=== PATIENT | female | born 1950 | race Caucasian/White ===

== ENCOUNTER → 2018-03-28 | Outpatient (CLI) | payer MEDICARE, MEDICAID | LOC: COL.RAD 07:24 | DX: R68.81 Early satiety (principal) | CPT/HCPCS: A9541 ==

== ENCOUNTER → 2020-04-30 | Outpatient (CLI) | payer MEDICARE, MEDICAID | LOC: MHCPAIN 13:17 | DX: M47.817 Spondylosis without myelopathy or radiculopathy, lumbosacral region (principal); M53.3 Sacrococcygeal disorders, not elsewhere classified; M54.6 Pain in thoracic spine; M54.5 Low back pain | CPT/HCPCS: G0463 ==

== ENCOUNTER → 2020-07-01 | Outpatient (CLI) | payer MEDICARE, MEDICAID | LOC: MHCPAIN 10:03 | DX: M47.817 Spondylosis without myelopathy or radiculopathy, lumbosacral region (principal); M79.18 Myalgia, other site; M54.5 Low back pain; M53.3 Sacrococcygeal disorders, not elsewhere classified; G89.29 Other chronic pain | CPT/HCPCS: G0463 ==

== ENCOUNTER → 2020-07-14 | Outpatient (CLI) | payer MEDICARE, MEDICAID | LOC: MHCPAIN 10:03 | DX: M54.16 Radiculopathy, lumbar region (principal); M47.817 Spondylosis without myelopathy or radiculopathy, lumbosacral region; G89.29 Other chronic pain | CPT/HCPCS: J1040 ==

== ENCOUNTER → 2020-08-05 | Outpatient (CLI) | payer MEDICARE, MEDICAID | LOC: MHCPAIN 11:19 | DX: M47.817 Spondylosis without myelopathy or radiculopathy, lumbosacral region (principal); M54.5 Low back pain; M53.3 Sacrococcygeal disorders, not elsewhere classified; G89.29 Other chronic pain | CPT/HCPCS: G0463 ==

== ENCOUNTER → 2020-08-05 | Outpatient (CLI) | payer MEDICARE, MEDICAID | LOC: COL.RAD 12:01 | DX: M16.11 Unilateral primary osteoarthritis, right hip (principal) ==

== ENCOUNTER → 2020-08-21 | Outpatient (CLI) | payer MEDICARE, MEDICAID | LOC: MHCPAIN 09:39 | DX: M16.11 Unilateral primary osteoarthritis, right hip (principal); M25.551 Pain in right hip | CPT/HCPCS: G0463; J1040; Q9967 ==

== ENCOUNTER → 2020-08-27 | Outpatient (RCR) | payer MEDICARE, MEDICAID | END | disposition still patient (30) | LOC: WSPT → WSC 05-29 09:00 → WSPT 07-14 09:00 → WSC 07-21 10:30 → WSPT 08-12 11:00 → WSC 08-14 09:00 → WSPT 08-19 09:00 → WSC 08-22 08:00 → WSPT 08-26 09:45 | DX: M47.27 Other spondylosis with radiculopathy, lumbosacral region (principal); M53.3 Sacrococcygeal disorders, not elsewhere classified ==

== ENCOUNTER → 2020-09-08 | Outpatient (CLI) | payer MEDICARE, MEDICAID | LOC: MHCPAIN 09:09 | DX: M47.817 Spondylosis without myelopathy or radiculopathy, lumbosacral region (principal); M79.18 Myalgia, other site; G89.29 Other chronic pain; M53.3 Sacrococcygeal disorders, not elsewhere classified | CPT/HCPCS: G0463 ==

== ENCOUNTER 2020-10-01 09:30 | Outpatient (RCR) | payer MEDICARE, MEDICAID | END 2020-10-06 | disposition home or self-care (01) | LOC: WSPT | DX: M54.5 Low back pain (principal); G89.29 Other chronic pain ==

== ENCOUNTER 2021-01-27 15:34 | Inpatient (IN) | payer MEDICARE, MEDICAID ==
[~2021-01-27] VITALS: Ht 167.6 cm; Wt 102.0 kg
[2021-03-10] VITALS (10 sets, daily range): BP systolic 109–143; BP diastolic 53–87; PULSE 64–99; TEMP 97.8–98.4
[2021-03-10] MEDS ORDERED: PRIL40 PO (09:36)
[2021-03-10] MEDS ORDERED: WELLBUTRIN XL150 MG PO (09:37)
[2021-03-10] MEDS ORDERED: PAMELOR50 MG PO (09:37)
[2021-03-10] MEDS ORDERED: INDERAL 20MG20 MG PO (09:38)
[2021-03-10] MEDS ORDERED: NEURONTIN300 MG/CAP PO (09:38)
[2021-03-10] MEDS ORDERED: HCTZ12.5TAB PO (09:39)
[2021-03-10] MEDS ORDERED: DESYREL 50MG50 MG PO (09:40)
[2021-03-10] MEDS ORDERED: REQUIP4 MG PO (09:41)
[2021-03-10] MEDS ORDERED: PRINIVIL20 MG PO (09:41)
[2021-03-10] MEDS ORDERED: LIORESAL 1010 MG/TAB PO (09:42)
[2021-03-10] MEDS ORDERED: SYNTHROID0.1 MG/TAB PO (09:43)
[2021-03-10] MEDS ORDERED: PERCOCET 325 MG1 TA2 PO (09:44)
[2021-03-10] MEDS ORDERED: IRON TABLETS325 MG PO (09:45)
[2021-03-10] MEDS ORDERED: VITAMIN C500 MG PO (09:46)
[2021-03-10] MEDS ORDERED: FOLIC ACID 40400 MCG PO (09:47)
--- NOTE | 2021-03-10 16:45 | NUR ---
RECEVIED REPORT FROM PACU NURSE, PHYLLIS CATES. AWAITING PATIENT ARRIVAL TO ROOM 327 POST OP
--- NOTE | 2021-03-10 16:55 | NUR ---
PATIENT ARRIVED TO ROOM 327 VIA HOSP BED WITH PACU NURSE PRESENT. PATIENT REPORTS SOME PAIN, SEE MAR FOR MEDS GIVEN. TOLERATING SIPS WATER AT THIS TIME, WANTING MORE TO EAT. IVF IN PLACE, FLUIDS RUNNING PER GRAVITY. DENIES CHEST PAIN/SOA AT THIS TIME. ENCOURAGED ANKLE PUMP EXERCISES AND C&DB EXERCISES POST OP. ICE BACK TO RIGHT HIP. DRSG TO RIGHT HIP CDI.
--- NOTE | 2021-03-10 17:00 | NUR ---
DECREASED ROM/STRENGTH TO RLE D/T SURGERY TODAY. DENIES CHEST PAIN/SOA AT THIS TIME. DENIES NUMBNESS/TINGLING TO EXTREMITIES AT THIS TIME. DENIES URGE TO VOID. IVF INFUSING PER GRAVITY WITH NO PROBLEM, IV SITE TO L HAND IN PLACE/PATENT. PATIENT TOLERATING CLEAR LIQUIDS AT THIS TIME. WIGGLES ELSA TOES ON COMMAND WITH NO PROBLEMS.
[2021-03-10] MEDS ORDERED: TYLENOL 325MG325 MG PO (17:26)
--- NOTE | 2021-03-10 19:30 | NUR ---
CHANGE OF SHIFT REPORT GIVEN TO NIGHT NURSE, SURYA CATES.
--- NOTE | 2021-03-10 20:00 | NUR ---
Report received, assumed care for shift coordinator. Assessment complete. A&Ox3. Denies nausea/shortness of breath. VS remain stable. Dressing to right hip CDI. Fresh ice pack applied. Attempted to get up to ambulate but states she cant feel her right lower extremity and it "yunier." Will reattempt later in this shift. Plan of care discussed for this shift to include HS meds/pain control/ambulation/calling for questions/concerns. Call light in reach. Will monitor.
--- NOTE | 2021-03-10 22:00 | NUR ---
Called with c/o pain to right hip-rating pain 8/10 on pain scale-described as constant throbbing. [place] given per dr veronica. WIll monitor.
[2021-03-11 03:47] VITALS: BP 98/55; PULSE 86; TEMP 97.7
--- NOTE | 2021-03-11 06:08 | NUR ---
Pt called to desk stating her IV was bleeding. Scant amount of blood underneath tegaderm. Flushes well with good blood return. Attempted to redress site but patient states she just wants a new IV site. IV to left hand DCd-cath intact.
--- NOTE | 2021-03-11 06:30 | NUR ---
Called with c/o pain to right hip-rating pain 5/10 on pain scale-described as constant throbbing. Diagonal given per dr veronica. Cortes monitor.
[2021-03-11 07:19] LABS: HEMOGLOBIN 12.3 g/dl (12.5-16.0)
[2021-03-11 08:00] VITALS: BP 107/57; PULSE 75; TEMP 97.5
--- NOTE | 2021-03-11 09:01 | NUR ---
PT UP WITH THERAPY THIS AM. PAIN RATING @4/10 AFTER PO PAIN MEDS. PT PLANS ON STAYING OVER NIGHT. VSS ASSESSMENTS COMPLETE. AMBULATING IN [place] WITH PT THIS AM. SLOW STEADY GAIT. AM MEDS GIVEN ORDERED.
[2021-03-11 11:14] VITALS: BP 100/51; PULSE 81; TEMP 97.8
[2021-03-11 15:04] VITALS: BP 110/67; PULSE 77; TEMP 97.6
--- NOTE | 2021-03-11 16:18 | NUR ---
Sw met with the pt, ( bedside) who stated her preference to return home once medically stable. Pt lives at home with her , adult children and grand children in [place], [place]. Pt is independent with all ADLs and uses a cane. No other DME at this time. Pt PCP is Shyam Denise and pt gets her medication from [facility] in [place], [place]. Pt reports no difficulties obtaining her meds. The pt informed Sw that she did not have [facility] paperwork, but her would be her first choice. Sw gave pt DPOA-[facility] paperwork and educated her on it. Sw informed pt that PT is recommending her outpatient therapy. Pt acknowledge, was aware and informed Sw that she is going to [facility] rehab. No other needs stated at this time. Sw to await further recommendations and follow up as needed. Discharge Plan: Home with [facility]ni with OP Pt.
[2021-03-11 19:37] VITALS: BP 101/52; PULSE 80
--- NOTE | 2021-03-11 20:00 | NUR ---
Report received, assumed care for residential sales. Assessment complete. A&Ox3. Denies nausea/shortness of breath. Rating pain 7/10 to right hip-described as ache/throbbing-oxycodone given per dr order. SCDs/Ab bilat. Aquacell dressing CDI. Plan of care discussed for this shift to include HS meds/pain control/ambulation. Verbalizes understanding/denies needs. Call light in reach. Will monitor.
[2021-03-11 23:10] VITALS: BP 96/53; PULSE 79; TEMP 97.9
--- NOTE | 2021-03-11 23:10 | NUR ---
Called with c/o pain to right lower extremity into buttocks. Rating pain 8/10 on pain scale-described as constant throbbing. [place] given per dr veronica.
[2021-03-12] VITALS (7 sets, daily range): BP systolic 72–136; BP diastolic 35–80; PULSE 50–97; TEMP 97.5–99
--- NOTE | 2021-03-12 03:40 | NUR ---
Up out of bed at this time-ambulated approx 200 feet. Voided without difficulty. Sat on side of bed for approx 30minutes. Rating pain 7/10 to right hip/lower extremity-described as constant throbbing. Oxycodone given per dr order. Fresh ice pack applied. SCDs off-requesting a break. Denies any other questions/concerns. Call light in reach. Will monitor.
--- NOTE | 2021-03-12 08:31 | NUR ---
PT EATING BREAKFAST. TONYA AYERS FOR ORTHO BY AND PLAN ON DISCHARGE LATER TODAY. PAIN WELL CONTROLLED WITH PO MEDS. UP TO BR AD CASEY. DRESSING TO RIGHT HIP CDI. PT EATING AND DRINKING WITH NO N/V. PLAN ON OUT PATIENT THERAPY AFTER DISCHARGE.
--- NOTE | 2021-03-12 11:47 | NUR ---
DURING ROUTINE VITALS PT'S BECAME HYPOTENSIVE AND DROWSEY. NOTIFIED DR. MANLEY AND TONYA AYERS. NEW ORDERS RECIEVED.
[2021-03-12 11:55] LABS: HEMOGLOBIN 11.6 g/dl (12.5-16.0)
[2021-03-12 11:58] LABS: HEMATOCRIT 35.8 % (37.0-47.0)
--- NOTE | 2021-03-12 12:16 | NUR ---
RETURNED PT TO BED IN [place] POSITION. PT BECAME NAUSEATED. LOWERED FEET TO MODIFIED [place]. PT TOLERATING WELL. PRESSURES IMPROVED. NAUSEA SUBSIDED. PT REMAINS DROWSEY. O2 SATS INITIALLY DROPPED TO MID 80'S. PLACED ON 3L PNC AND SATS IMPROVED TO MID 90'S.
--- NOTE | 2021-03-12 20:45 | NUR ---
PT IN BED. HAS DRSG TO RIGHT HIP AQUACEL, D/I. TAKES HS MEDS WITHOUT PROBLEM. B/P IMPROVED WITH IVF. RT AC IV SITE WITHOUT REDNESS OR SWELLING. IS ALERT AND ORIENTED X4.
[2021-03-13 04:56] VITALS: BP 111/80; PULSE 88; TEMP 98.3
--- NOTE | 2021-03-13 05:04 | NUR ---
PT REPORTS PAIN 8/10 TO RT HIP, MEDICATED WITH NORCO 7.5MG 1 TAB PO NOW.
[2021-03-13 06:44] LABS: HEMOGLOBIN 10.9 g/dl (12.5-16.0)
[2021-03-13 06:52] LABS: HEMATOCRIT 33.1 % (37.0-47.0)
[2021-03-13 08:05] VITALS: PULSE 65; TEMP 98.2
[2021-03-13 08:08] VITALS: BP 90/49; PULSE 67; TEMP 98.2
--- NOTE | 2021-03-13 09:50 | NUR ---
Patient assisted out of the bathroom, she had a large BM. Assisted with pericares. Walker & gait belt used. She was up to sink & brushed her teeth. steady on her feet. Patient tolerated breakfast. Hip aquacell dressing CDI. Patient denies feeling lightheaded or dizzy, Bp still soft. Inderel held due to BP. Ivf continues. Did given one tab pain medication per request. Will monitor. Patient still hopeful for discharge this afternoon.
--- NOTE | 2021-03-13 10:22 | NUR ---
Follow-up visit; Patient thanked [facility] Manager for continuing to offer God's blessings.
[2021-03-13 11:52] VITALS: BP 105/62; PULSE 92; TEMP 97.8
--- NOTE | 2021-03-13 13:35 | NUR ---
Patient ambulated halls with therapy. Farthest that she has walked, worn out after & elevated pain. One tab norco for pain per request. She tolerated her lunch. She is ready to take a nap. Will monitor.
[2021-03-13 14:33] VITALS: BP 103/49; PULSE 85; TEMP 98.3
[2021-03-13] MEDS ORDERED: XARELTO10 MG PO (15:03)
[2021-03-13] MEDS ORDERED: ROXICODONE 55 MG/TAB PO (15:05)
[2021-03-13] MEDS ORDERED: NORCO 325 MG-7.1 TAB PO (15:05)
[2021-03-13] MEDS ORDERED: SENOKOT S 50 MG1 TAB PO (15:07)
--- NOTE | 2021-03-13 17:10 | NUR ---
Patient ready for discharge. Jean Carlos Márquez called. Vitals taken per orders, he verified discharge. BP stable. Patient given all discharge teaching. Patient has BP machine & will continue to monitor both O2 sats & Bp at home. Patient to make & keep follow up with PCP, Attem[facility] to call PCP but were closed for the weekend. Patient aware of scripts faxed to pharmacy of choice we reviewed new medications & last dose taken. Side effects reviewed. Hip incisions cares & hip precautions reviewed. Patient aware of follow up appt & outpatient therapy appts. Patient wheeled out with all belongings & her spouse taking her home.
== END 2021-03-13 17:10 | disposition home or self-care (01) | DRG 470 ==
LOC: INPTSU 03-10 08:01 → SURG 03-10 11:00
PROVIDERS: ADMIT Orthopaedic Surgery
PROC: 0SR904Z Replacement of Right Hip Joint with Ceramic on Polyethylene Synthetic Substitute, Open Approach (ICD-10-PCS; principal; 2021-03-10 12:35)
DX: M16.11 Unilateral primary osteoarthritis, right hip (principal)
CPT/HCPCS: A4314; A9284; C1713; C1776; J0690; J1100; J2250; J2370; J2405; J2704; J3010; J7030; J7040; J7120

== ENCOUNTER → 2021-07-08 | Outpatient (CLI) | payer MEDICARE, MEDICAID ==
[~2021-07-08] MED LIST: DESYREL 50MG50 MG PO; FOLIC ACID 40400 MCG PO; HCTZ12.5TAB PO; INDERAL 20MG20 MG PO; IRON TABLETS325 MG PO; LIORESAL 1010 MG/TAB PO; NEURONTIN300 MG/CAP PO; NORCO 325 MG-7.1 TAB PO; PAMELOR50 MG PO; PERCOCET 325 MG1 TA2 PO; PRIL40 PO; PRINIVIL20 MG PO; REQUIP4 MG PO; ROXICODONE 55 MG/TAB PO; SENOKOT S 50 MG1 TAB PO; SYNTHROID0.1 MG/TAB PO; TYLENOL 325MG325 MG PO; VITAMIN C500 MG PO; WELLBUTRIN XL150 MG PO; XARELTO10 MG PO
== END ==
LOC: MHCPAIN 09:08
DX: M79.18 Myalgia, other site (principal); M54.50 Low back pain, unspecified; M41.86 Other forms of scoliosis, lumbar region
CPT/HCPCS: G0463

== ENCOUNTER 2021-08-04 10:30 | Outpatient (RCR) | payer MEDICARE, MEDICAID | END 2021-08-06 | disposition home or self-care (01) | LOC: WSPT | DX: Z96.641 Presence of right artificial hip joint (principal); M25.551 Pain in right hip; Z47.1 Aftercare following joint replacement surgery ==